=== PATIENT | female | born 1990 | race Hispanic/Latino ===

== ENCOUNTER → 2020-12-30 08:58 | Outpatient (CLI) | payer OTHER, SELFPAY ==
--- NOTE | 2020-12-30 | DI.NM.S_ITS ---
PROCEDURE: NM HIDA NO EJECTION FRACTION RADIOPHARMACEUTICAL: 4.5 mCi Tc-99m mebrofenin IV. INDICATIONS: Other specified diseases of gallbladder TECHNIQUE: Following intravenous administration of Tc-99m mebrofenin, sequential anterior abdominal images were obtained through at least 60 minutes. COMPARISON: US, ABDOMEN COMPLETE, 11/27/2016, 12:46. FINDINGS: There is normal tracer uptake and excretion by the liver. There is normal visualization of intrahepatic ducts, common bile duct, and normal tracer excretion into duodenum. There is absence of gallbladder filling through 3 hours. Bile reflux into the stomach. IMPRESSION: 1. Absence of gallbladder filling through 3 hours. The scintigraphic finding is suspicious for acute cholecystitis. Recommend clinical correlation. If clinically indicated, gallbladder ultrasound may be helpful. 2. Bile reflux to the stomach. 3. No findings to suggest biliary obstruction. Dictated by: Bret Nguyen M.D. on 12/30/2020 at 13:22 Approved by: Bret Nguyen M.D. on 12/30/2020 at 14:50
== END ==
PROVIDERS: Referring Provider Surgery; Visit Provider Surgery
DX: K82.8 Other specified diseases of gallbladder (principal)
CPT/HCPCS: 78226; A9537

== ENCOUNTER 2021-01-10 06:30 | Day surgery (SDC) | payer OTHER, SELFPAY ==
[2021-01-10] VITALS (11 sets, daily range): BP systolic 89–141; BP diastolic 50–93; PULSE 62–84; RESP 13–98; TEMP 36.6–37.2; O2SAT 17–100; BMI 38.0
--- NOTE | 2021-01-10 | PATH_ITS ---
[facility] Accession Number: [id number] . 01 Material submitted: . gallbladder - GALLBLADDER AND CONTENTS . 01 Clinical history: . SDC . 02 Diagnosis: Gallbladder and Contents, Cholecystectomy: Cholelithiasis with chronic, minimally active cholecystitis. No evidence of neoplasm. [facility] 01/12/2021 1056 Local . 02 Electronically signed: . Jose Crowder MD, PhD, Pathologist NPI- [id number] . 01 Gross description: . The specimen is received in formalin, labeled gallbladder and contents and consists of a 7.6 x 4.5 x 3.0 cm previously disrupted gallbladder with a 0.2 cm in diameter cystic duct. The serosa is pink-purple with fibrinous adhesions. Opening reveals a waldrop-pink, focally hemorrhagic and smooth to wrinkled mucosa. A 1.0 x 0.8 x 0.7 cm waldrop bosselated cholelith is identified firmly lodged within the neck of the specimen. The wall thickness ranging from 0.1-0.5 cm[address] [employer] sections are submitted, to include the en face cystic duct margin (blue), in cassette A1. ([id number]) /V 01/11/2021 1057 Local . 02 Pathologist provided ICD-10: K80.60, K81.2 . 02 CPT . 989458 Performed at: 01 [facility] [address], [place], [place] [id number] MD Harrison Woody MD Phone: [phone] Performed at: 02 [facility] [address] , [place], [place] [id number] MD Tasha Leong MD Phone: [phone]
--- NOTE | 2021-01-10 07:33 | PM.HP.1 ---
History of Present Illness History of Present Illness Date Patient Seen: 01/10/21 Time Patient Seen: 07:33 Chief complaint: SDC Narrative: 30 F with acute on chronic cholecystitis. Please see H& P from November 2020 for further detail. Over the interval continues to have RUQ pain, HIDA scan shows no gallbladder uptake consistent with acute cholecystitis. Patient History Surgical History Hx of tonsillectomy Family & Social History Social History: household members spouse Meds Home Medications and Allergies Home Medications Medication Instructions Recorded Confirmed Type No Known Home Medications 01/10/21 01/10/21 History Allergies Allergy/AdvReac Type Severity Reaction Status Date / Time No Known Drug Allergies Allergy Verified 01/10/21 07:12 Exam Narrative Exam Narrative: Constitutional-She is oriented to person, place and time. No apparent distress Cardiovascular- regular rate, no peripheral edema Pulmonary-unlabored respiratory effort, no audible wheezing Abdominal-soft, non-distended Musculoskeletal-no cyanosis or clubbing Neurological-nonfocal, normal strength throughout, normal gait. Skin-warm and dry Assessment & Plan Assessment and plan (1) Acute cholecystitis: Status: Acute Plan: 30 year history of obesity here with acute on cholecystitis. Recommended we proceed with laparoscopic cholecystectomy. Technical details of the operation were discussed with the patient. Operative risks including bleeding, infection, bile leak, bile duct injury, conversion to open were discussed. Questions have been answered and she is in agreement with this plan. Time Spent With Patient Critical Care time: I spent a total of [] minutes of critical care time on this patient's care today; this time is exclusive of procedural time.
[2021-01-10 07:42] LABS: COVID19 -Nasal RAPID Negative (Negative)
[2021-01-10] MEDS: ACETAMINOPHEN 325 MG TABLET 975 MG PO (07:45)
[2021-01-10] MEDS: SCOPOLAMINE 1 PATCH TOP (07:45)
[2021-01-10] MEDS: GABAPENTIN 300 MG CAPSULE PO (07:45)
[2021-01-10] MEDS: LACTATED RINGERS 1,000 ML 42 ML IV (07:46)
[2021-01-10] MEDS: CEFAZOLIN 1 GM VIAL 2 GM IV (08:06)
--- NOTE | 2021-01-10 08:11 | SUR.OPER ---
Supine on padded OR bed, head on pillow, safety belt at thigh, left arm padded and tucked at side. Right arm secured on padded arm board <90 degrees abduction. Legs uncrossed. Padded footboard in place. Tape over blanket to secure lower legs.
[2021-01-10] MEDS: BUPIVACAINE 0.25% (PF) VIAL 30 ML INJ (08:20)
--- NOTE | 2021-01-10 09:19 | PM.OP.1 ---
Operative Date/Time/Diagnoses Date of procedure: 01/10/21 Time of procedure: 09:19 Pre-op diagnosis: acute cholecystitis Post-op diagnosis: same Procedure & Clinicians Procedure: Laparoscopic cholecystectomy Same procedure as scheduled: Yes Indications: 30-year-old female with acute on chronic cholecystitis. HIDA scan demonstrates no uptake by the gallbladder. Surgeon: Stan Bermudez Click Yes if Unassisted: Yes Anesthesia Type: General Operative Notes Findings: Chronic cholecystitis. Critical view of safety Specimen(s): other (Gallbladder) Estimated Blood Loss (mL): 20 Procedure in detail: The patient was placed supine on the table and bilateral lower extremity compression devices were applied. Anesthesia was induced they were intubated with an endotracheal tube and received 2g of Ancef. A time-out was performed. They were prepped and draped in sterile fashion. An infraumbilical incision was made, the umbilical stalk was elevated and the fascia was sharply incised entering the abdomen atraumatically. A blunt tip 12mm balloon trocar was then inserted, pneumoperitoneum was established and inspection of the abdomen demonstrated no evidence of injury. They were placed head up and right side up. 5 mm port was placed high in the epigastrium and two 5mm in the right upper quadrant. The stomach and omentum were adherent to the gallbladder and were carefully . The gallbladder was grasped by the fundus and retracted over the liver and retracted laterally by the infundibulum. Using electrocautery the lateral plane between the gallbladder and the liver was opened towards the fundus. The gallbladder was then retracted laterally and the medial plane was developed in the same manner. With the gallbladder mobilized the bottom of the cystic plate was visualized. The hepatocystic triangle was meticulosly skeletonized using hook electrocautery of all fat and fibrous tissue from both the front and the back. Only two structures were then clearly seen entering the gallbladder the cystic duct and the cystic artery. With the critical view of safety fully established the cystic duct was clipped twice proximally and once distally using the 5 mm weck hemoclip clip applied under direct visualization and then sharply divided. The cystic artery was divided in the same fashion. The gallbladder was removed from the liver bed using electro cautery. The liver bed was then inspected for hemostasis and this was achieved. The abdomen was irrigated with sterile saline and inspection was made that showed the clips in good position. The specimen was removed using Endo-Catch. The abdomen was desufflated. The umbilical fascia was closed with 0 Vicryl in a [id number] fashion under direct visualization. Skin incisions were irrigated and closed with 4-0 Monocryl. 30 ml of 0.25% bupivacaine was infiltrated into the subcutaneous tissue of the incisions. The wounds were sealed with Dermabond. Patient emerged from anesthesia was extubated and transferred to recovery in stable condition. The sponge and instrument count at the end of the operation was correct. Complications: none Post-operative Condition: stable Disposition: same day surgery
[2021-01-10] MEDS: ONDANSETRON 4 MG/2 ML INJ IV ×2 (09:25→09:44)
[2021-01-10] MEDS: fentaNYL 100 MCG/2 ML INJ IV ×2 (09:45→09:50)
[2021-01-10] MEDS: OXYCODONE IR 5 MG TABLET PO (10:12)
== END 2021-01-10 10:45 | disposition home or self-care (01) ==
PROVIDERS: Referring Provider Surgery; Visit Provider Surgery
PROC: 0FT44ZZ Resection of Gallbladder, Percutaneous Endoscopic Approach (ICD-10-PCS; CPT 47562; principal; 2021-01-10 07:45)
DX: K80.10 Calculus of gallbladder with chronic cholecystitis without obstruction (principal); Z20.822 Contact with and (suspected) exposure to COVID-19
CPT/HCPCS: 47562; 81025; 82962; 87635; J0330; J0690; J1100; J1885; J2250; J2405; J2704; J3010

== ENCOUNTER 2022-03-28 12:45 | Emergency (ER) | payer OTHER, SELFPAY ==
[2022-03-28 12:50] VITALS: BP 164/89; PULSE 87; RESP 16; TEMP 36.9; O2SAT 98; BMI 39.1
[2022-03-28 12:53] VITALS: PULSE 88; O2SAT 97
[2022-03-28 13:00] VITALS: BP 145/83; PULSE 89; O2SAT 98
--- NOTE | 2022-03-28 13:20 | ED.CHESTPAIN ---
HPI - Chest Pain General Chief Complaint: Chest Pain Stated Complaint: Chest pain, Numb arms/legs, Lightheaded Time Seen by Provider: 03/28/22 12:56 Source: patient Mode of arrival: Ambulatory Limitations: no limitations History of Present Illness HPI narrative: Otherwise healthy 31-year-old female who is here for evaluation of multiple symptoms to include a sharp pain in her chest, tingling in her hands and feet and feeling lightheaded. She states the symptoms started this morning when she was sitting at her desk. Her symptoms have improved but not completely resolved. No palpitations. No skin rashes. No shortness of breath. Never had symptoms like this in the past. Related Data Previous Rx's Medication Instructions Recorded ibuprofen 200 mg tablet 400 mg PO Q6H #60 tabs 01/10/21 Allergies Allergy/AdvReac Type Severity Reaction Status Date / Time No Known Drug Allergies Allergy Verified 02/07/21 11:09 Review of Systems Constitutional Constitutional: Reports system reviewed and no additional complaints, except as documented Cardiovascular Cardiovascular: Reports system reviewed and no additional complaints, except as documented Respiratory Respiratory: Reports system reviewed and no additional complaints, except as documented Integumentary/Breasts Skin/Breast: Reports system reviewed and no additional complaints, except as documented Neurologic Neurologic: Reports system reviewed and no additional complaints, except as documented Psychiatric Psychiatric: Reports system reviewed and no additional complaints, except as documented Hematologic/Lymphatic On Anticoagulants: No Patient History Medical History Healthy adult Surgical History Hx of tonsillectomy Social History household members: spouse Smoking Status: Former smoker alcohol intake: current Smoking Status: Former smoker alcohol intake frequency: a few times a month Substance Use Type: does not use Exam Initial Vital Signs Initial Vital Signs: Vital Signs Temperature 98.4 F 03/28/22 12:50 Pulse Rate 87 03/28/22 12:50 Respiratory Rate 16 03/28/22 12:50 Blood Pressure 164/89 H 03/28/22 12:50 Pulse Oximetry 98 03/28/22 12:50 Oxygen Delivery Method 03/28/22 12:50 HENMT Head: normal to inspection and normocephalic Resp Effort & Inspection: normal respiratory effort Auscultation: clear to auscultation bilaterally Cardio Rate: regular rate Rhythm: regular rhythm Skin General: no rashes or lesions noted Neuro General: patient alert, patient awake and moves all extremities Extrem General: capillary refill normal Course Orders Ordered: ED Orders 03/28/22 13:07 EKG-12 Lead Stat Vital Signs Vital signs: Vital Signs - 8 hr 03/28/22 12:50 03/28/22 12:53 03/28/22 13:00 Temperature 98.4 F Pulse Rate 87 88 Respiratory Rate 16 Blood Pressure 164/89 H 145/83 H Pulse Oximetry 98 97 Oxygen Delivery Method Room Air 03/28/22 13:00 Temperature Pulse Rate 89 Respiratory Rate Blood Pressure Pulse Oximetry 98 Oxygen Delivery Method Room Air MDM - Chest Pain ECG Data Attestation: I personally reviewed and interpreted this ECG as follows: Interpretation: Sinus rhythm Ventricular rate 87 Normal axis Normal QRS Normal QTC No ST T wave changes MDM Narrative Medical decision making narrative: Low suspicion for CVA, TIA, ACS. EKG is unremarkable. I do have a suspicion that there is a anxiety component. We can hold on further workup for now. Patient was given return precautions. She expressed understanding and agreement. Discharge Plan Departure Patient Disposition: Home Clinical Impression: Distal paresthesia Instructions: DI for Numbness/Tingling Activity Restrictions/Additional Instructions: Recommend you contact your primary doctor for follow-up. Return to the emergency department for any new or worsening symptoms. Prescriptions: No Action ibuprofen 200 mg tablet 400 mg PO Q6H Qty: 60 0RF
[2022-03-28 13:30] VITALS: BP 140/85; PULSE 72; O2SAT 96
== END 2022-03-28 13:49 | disposition home or self-care (01) ==
PROVIDERS: Emergency Provider Emergency Medicine
DX: R07.9 Chest pain, unspecified (principal); R20.2 Paresthesia of skin
CPT/HCPCS: 93005; 99281; 99282